=== PATIENT | male | born 1995 | race African-American/Black ===

== ENCOUNTER 2019-06-24 21:49 | Emergency (ER) | payer OTHER ==
[~2019-06-24] VITALS: Ht 172.7 cm; Wt 74.8 kg
[2019-06-24] MEDS ORDERED: NS 1,000 ML IV ONE (22:15)
[2019-06-24] MEDS ORDERED: ONDANSETRON 4MG/2ML VIAL IV ONE (22:15)
[2019-06-24 22:50] LABS: BASO # 0.1 10^3/uL (0.0-0.2); BASO % 0.4 % (0.0-1.0); EOS % 0.3 % (0.0-3.0); HEMATOCRIT 51.3 % (42.0-52.0); HEMOGLOBIN 18.2 g/dl (13.5-17.5); LYMPH % 14.3 % (24.0-44.0); MEAN CORPUSCULAR HEMOGLOBIN 30.2 pg (27.0-33.0); MEAN CORPUSCULAR HGB CONC 35.5 g/dl (32.0-36.5); MEAN CORPUSCULAR VOLUME 85.2 fl (80.0-96.0); MONO # 1.7 10^3/uL (0.0-0.8); MONO % 12.3 % (0.0-5.0); NEUTROPHILS # 9.8 10^3/uL (1.5-8.5); NEUTROPHILS % 72.3 % (36.0-66.0); PLATELET COUNT, AUTOMATED 367 10^3/uL (150-450); RED BLOOD COUNT 6.02 10^6/uL (4.30-6.10); WHITE BLOOD COUNT 13.6 10^3/uL (4.0-10.0)
[2019-06-24 23:05] LABS: ALBUMIN 5.2 GM/DL (3.2-5.2); BILIRUBIN,DIRECT 0.4 MG/DL (0.0-0.2); BILIRUBIN,TOTAL 1.7 MG/DL (0.2-1.0); TOTAL PROTEIN 9.1 GM/DL (6.4-8.2)
[2019-06-24] MEDS ORDERED: ONDA4TAB6 PO (23:33)
[2019-06-24 23:35] VITALS: BP 167/84
== END 2019-06-24 23:56 | disposition home or self-care (01) ==
LOC: M ED 21:49
DX: K52.9 Noninfective gastroenteritis and colitis, unspecified (principal); Z90.89 Acquired absence of other organs
CPT/HCPCS: 36415; 80047; 80076; 83690; 85025; 96361; 96374; 99284; J2405

== ENCOUNTER 2021-06-01 12:28 | Emergency (ER) | payer OTHER ==
[~2021-06-01] VITALS: Ht 170.2 cm; Wt 68.2 kg
[~2021-06-01 12:28] MED LIST: ONDA4TAB6 PO
[2021-06-01] MEDS ORDERED: KETOROLAC 30 MG/ML 1ML VIAL IM ONE (14:50)
[2021-06-01] MEDS ORDERED: ACETAMINOPHEN 325 MG TAB PO ONE (14:50)
[2021-06-01] MEDS ORDERED: KETO10TAB PO (16:22)
[2021-06-01 16:32] VITALS: BP 149/94
== END 2021-06-01 16:35 | disposition home or self-care (01) ==
LOC: M ED 12:28
DX: R51.9 Headache, unspecified (principal); F17.200 Nicotine dependence, unspecified, uncomplicated
CPT/HCPCS: 96372; 99283; J1885